=== PATIENT | female | born 1990 | race Hispanic/Latino ===

== ENCOUNTER 2017-08-02 13:31 | Emergency (ER) | payer OTHER ==
[2017-08-02] MEDS ORDERED: SODIUM CHLORIDE 0.9% 1000ML 1,000 ML IV ONE (13:58)
[2017-08-02] MEDS ORDERED: ONDANSETRON HCL 4 MG/2 ML VIAL ONE ×2 (13:58→15:20)
[2017-08-02 15:40] LABS: HCG,QUAL RESULT NEGATIVE (NEGATIVE)
[2017-08-02 15:41] LABS: AMPHET/METH SCREEN,URINE NEGATIVE (NEGATIVE); BARBITURATE SCREEN, URINE NEGATIVE (NEGATIVE); BENZODIAZEPINES SCREEN,URINE NEGATIVE (NEGATIVE); CANNABINOID SCREEN,URINE POSITIVE (NEGATIVE); COCAINE SCREEN,URINE NEGATIVE (NEGATIVE); OPIATE SCREEN,URINE NEGATIVE (NEGATIVE); PHENCYCLIDINE SCREEN,URINE NEGATIVE (NEGATIVE)
[2017-08-02] MEDS ORDERED: PANTOPRAZOLE SODIUM 40 MG TABLET.DR PO ONE (16:49)
== END 2017-08-02 16:58 | disposition home or self-care (01) ==
LOC: EDH 13:31
DX: K29.21 Alcoholic gastritis with bleeding (principal); K21.9 Gastro-esophageal reflux disease without esophagitis
CPT/HCPCS: 36415; 80305; 81025; 96361; 96374; 96376; 99284; G0480; J2405 ×2; J7030